=== PATIENT | female | born 1990 | race Caucasian/White ===

== ENCOUNTER 2019-04-27 00:11 | Inpatient (IN) | payer BC ==
[2019-04-27] MEDS ORDERED: Acetaminophen 325 MG Tab PO PRN (01:38)
[2019-04-27] MEDS ORDERED: Lactated Ringers 500 ML IV ONE (01:38)
[2019-04-27] MEDS ORDERED: Tranexamic Acid 1,000 MG in Sodium Chloride 0.9% 100 ML IV PRN (01:38)
[2019-04-27] MEDS ORDERED: Sodium Chloride 0.9% 10 ML Syringe FLUSH PRN (01:38)
[2019-04-27] MEDS ORDERED: Methylergonovine 0.2 MG/1 ML Amp IM PRN (01:38)
[2019-04-27] MEDS ORDERED: Carboprost Tromethamine 250 MCG/1 ML Amp IM PRN (01:38)
[2019-04-27] MEDS ORDERED: Lidocaine 1% 30 ML SDV INJECT PRN (01:38)
[2019-04-27] MEDS ORDERED: Misoprostol 400 MCG (4 X 100 MCG TAB) RECTAL PRN (01:38)
[2019-04-27] MEDS ORDERED: Oxytocin/Normal Saline 30 UNIT/500 ML BAG IV SCH (01:45)
[2019-04-27] MEDS ORDERED: Misoprostol 50 MCG (1/2 of 100 MCG) Tab VAG ONE (02:34)
[2019-04-27] MEDS ORDERED: Penicillin G Potassium 5 MILLUNITS in Sodium Chloride 0.9% 100 ML IV ONE (05:55)
[2019-04-27] MEDS: Lactated Ringers 1,000 ML IV SCH ×3 (06:31→22:16)
--- NOTE | 2019-04-27 10:02 | PCM.PRNOTE ---
- Free Text/Narrative Note: OB History and Physical 04/27/19 Chief Complaint: Induction of labor HPI: 28 y.o. year old at 39w6d (Estimated Date of Delivery: 04/28/19) who presents for planned induction of labor due to history of LGA and breech presentation s/p successful ECV. She reports active movement. ROS: Negative for headache, nausea, vomiting, diarrhea, fever, chills, abdominal pain, hematuria, dysuria, contractions, loss of fluid or bleeding per vagina. Medical Hx: unremarkable Surgical Hx: wisdom teeth extraction Family Hx: negative for defects, bleeding/cloting disorders or heart disease OB Hx: Last was vacuum assisted for 4130g baby with a shoulder dystocia. Labs: OB Panel: Blood Type: B Positive Rubella: Immune HBSAg: nonreactive GBS: Positive Gonorrhea/Chlamydia: Not Detected HIV: Nonreactive RPR: Nonreactive Physical Exam: Vitals: l l 04/26/19 0937 BP: 102/64 Weight: 228 lb 8 oz (104 kg) Gen: No distress CV: Well-perfused, 2+ distal pulses, regular rate and rhythm, no audible murmurs Resp: Non-labored, symmetrical chest expansion, clear to auscultation Abd: gravid, soft, non tender Ext: Moves all extremities, no edema. SVE: 4/75/-3 FHT: 130 CTX: irregular Assessment: 28 y.o. year old at 39w6d who presents for induction of labor for previous LGA infant and breech presentation s/p successful ECV. Cat I Strip. Plan: - Admit to LnD at midnight - Start with cytotec for induction - Limited OB US to ensure vertex presentation - Assess in the morning and determine AROM vs pitocin - Routine cares Nadege Osullivan MD
[2019-04-27] MEDS: Penicillin G Potassium 2.5 MILLUNITS in Sodium Chloride 0.9% 100 ML IV SCH ×4 (10:48→22:53)
[2019-04-27] MEDS ORDERED: Nalbuphine 10 MG/1 ML Vial IM PRN ×2 (14:40→18:58)
[2019-04-27] MEDS: Ondansetron 4 MG/2 ML SDV IV PRN (21:46)
[2019-04-27] MEDS ORDERED: fentaNYL 100 MCG/2 ML SDV ONE (21:53)
[2019-04-27] MEDS ORDERED: EPINEPHrine 1 MG/ML SDV ONE (21:54)
[2019-04-27] MEDS ORDERED: Sodium Bicarbonate 4.2% 2.5 MEQ/5 ML SDV ONE (21:54)
--- NOTE | 2019-04-27 22:17 | PCM.SN ---
- Free Text/Narrative Note: Intrathecal Sitting position, sterile prep and drape. 1% lidocaine w bicarb for skinwheal to L2 L3 interspace. Introducer, 24 ga pencan x 1. Pos CSF, neg heme, neg parasthesia. 0.1 ml pf 1:1000 epi, 20 mcg pf sufenta, 30 mcg pf fentanyl, and 6 mg of 0.75% pf bupivacaine injected after CSF aspiration. Pt to L lateral position. Procedure time 2150 to 2220
[2019-04-28] MEDS: Ondansetron 4 MG/2 ML SDV IV PRN (02:11)
[2019-04-28] MEDS ORDERED: fentaNYL 100 MCG/2 ML SDV ONE (02:12)
[2019-04-28] MEDS: Lactated Ringers 1,000 ML IV SCH (02:14)
[2019-04-28] MEDS ORDERED: EPINEPHrine 1 MG/ML SDV ONE (02:14)
[2019-04-28] MEDS ORDERED: Sodium Bicarbonate 4.2% 2.5 MEQ/5 ML SDV ONE (02:14)
--- NOTE | 2019-04-28 02:35 | PCM.SN ---
- Free Text/Narrative Note: Intrathecal Sitting position, sterile prep and drape. 1% lidocaine w bicarb for skinwheal to L2 L3 interspace. Introducer, 24 ga pencan x 1. Pos CSF, neg heme, neg parasthesia. 0.1 ml pf 1:1000 epi, 20 mcg pf sufenta, 30 mcg pf fentanyl, and 6 mg of 0.75% pf bupivacaine injected after CSF aspiration. Pt to L lateral position. Procedure time 0215 to 0245
[2019-04-28] MEDS: Penicillin G Potassium 2.5 MILLUNITS in Sodium Chloride 0.9% 100 ML IV SCH ×2 (04:06→06:50)
[2019-04-28] MEDS ORDERED: Zolpidem 5 MG Tab PO PRN (04:53)
[2019-04-28] MEDS ORDERED: Misoprostol 400 MCG (4 X 100 MCG TAB) RECTAL PRN (04:53)
[2019-04-28] MEDS ORDERED: Oxytocin 10 Units/1 ML SDV IM PRN (04:53)
[2019-04-28] MEDS ORDERED: Carboprost Tromethamine 250 MCG/1 ML Amp IM PRN (04:53)
[2019-04-28] MEDS ORDERED: Tranexamic Acid 1,000 MG in Sodium Chloride 0.9% 100 ML IV PRN (04:53)
[2019-04-28] MEDS ORDERED: Sodium Chloride 0.9% 10 ML Syringe FLUSH PRN (04:53)
[2019-04-28] MEDS ORDERED: Simethicone 80 MG Tab.Chew PO PRN (04:53)
[2019-04-28] MEDS ORDERED: Benzocaine/Menthol 20%-0.5% Spray 56 GM Canister TOP PRN (04:53)
--- NOTE | 2019-04-28 05:02 | PCM.PRNOTE ---
- Free Text/Narrative Note: Delivery Note Date: 04/28/19 Time: 0433 Provider: Nadege Osullivan MD Ceo & Board Director: Valeri Yoon MS3 Liliana Griffith is a 28 y.o. at 40w0d who presented for induction of labor on 04/27/19. Category 1 tracing upon admission. She was dilated to 4 cm upon admission. She progressed with augmentation with cytotec then pitocin. Artificial rupture of membranes at 1130 with clear fluid while placing a scalp electrode due to a prolonged deceleration. The pitocin was stopped for a while, then restarted and continued to progress. She was complete at 0400. She began pushing at approximately 0355. Delivered a liveborn female infant. Vigorous with spontaneous cry given to mom for skin to skin care. Placenta delivered spontaneously intact with a 3 vessel cord. IV Pitocin was started shortly after delivery of the placenta. Uterus firm. Intact perineum, no lacerations or abrasions. Hemostasis confirmed. Mother and doing well. EBL: 150 mL
[2019-04-28] MEDS: Docusate Sodium 100 MG Cap PO PRN ×2 (10:19→21:39)
[2019-04-28] MEDS: Ibuprofen 800 MG Tab PO PRN ×2 (10:19→18:26)
[2019-04-28] MEDS: Prenatal Multivitamin with Calcium/Folic Acid/Iron Tab PO SCH (10:19)
[2019-04-28] MEDS: Acetaminophen 325 MG Tab PO PRN ×2 (14:18→21:39)
[2019-04-29] MEDS: Prenatal Multivitamin with Calcium/Folic Acid/Iron Tab PO SCH (08:07)
[2019-04-29] MEDS: Docusate Sodium 100 MG Cap PO PRN (08:07)
[2019-04-29] MEDS: Acetaminophen 325 MG Tab PO PRN (08:07)
--- NOTE | 2019-04-29 10:00 | PCM.SN ---
- Free Text/Narrative Note: Post Delivery Day #0 Date: 04/28/19 Subjective: Patient is ambulating without assistance and tolerating oral intake. Her pain has been well-controlled, and her bleeding has been minimal. She has not had nausea, vomiting, blurred vision, diarrhea, shortness of breath, or any other complaints. She is . Objective: Vitals stable Gen: No distress CV: Well-perfused, 2+ distal pulses Resp: Non-labored, symmetrical chest expansion Abd: Fundus is firm and below umbilicus. Ext: Moves All Extremities Well, no edema. Assessment: Status post ( day #0) who is doing well. Plan: - Routine Nursing - vitamin - Encourage and bonding Nadege Osullivan MD
--- NOTE | 2019-04-29 10:01 | PCM.SN ---
- Free Text/Narrative Note: Post Delivery Day #1 Subjective: Patient is ambulating without assistance and tolerating oral intake. Her pain has been well-controlled, and her bleeding has been minimal. She has not had nausea, vomiting, blurred vision, diarrhea, shortness of breath, or any other complaints. She is . Objective: Vitals stable Gen: No distress CV: Well-perfused, 2+ distal pulses Resp: Non-labored, symmetrical chest expansion Abd: Fundus is firm and below umbilicus. Ext: Moves All Extremities Well, no edema. Assessment: Status post ( day #1) who is doing well. Plan: - Routine Nursing - vitamin - Likely discharge later today or tomorrow - Breast pump script signed Nadege Osullivan MD
--- NOTE | 2019-04-29 15:59 | PCM.SN ---
- Free Text/Narrative Note: Discharge Summary Admit date: 04/27/19 Discharge date: 04/29/19 Delivering Physician: Dr. Osullivan Discharging Physician: Dr. Osullivan Admission Diagnoses: at 39w6d EGA Induction of labor History of LGA baby Breech presentation s/p successful ECV Summary of Hospital Course: Liliana is a 28 year old G2 now P2 who presented to labor and delivery on 04/27/19 for induction of labor. She underwent spontaneous vaginal delivery and delivered a viable female weighing 3750 grams with Apgars of 9 and 9 at 1 and 5 minutes respectively. EBL was 150 mL. The patient had an unremarkable course. By day 1, the patient was doing well; ambulating, voiding, and tolerating general diet. Her pain was well controlled with oral pain medications, and was she was discharged to home. Admission hemoglobin was 11.4 gm/dL. Discharge hemoglobin was 10.1 gm/dL. Discharge Exam: Gen: No distress CV: Well-perfused, 2+ distal pulses Resp: Non-Labored, symmetrical chest expansion Abd: Fundus is firm and below umbilicus. Ext: Moves all extremities well, no edema. Discharge (or Final) Diagnoses: 1. Intrauterine at 40w0d on day of delivery 2. Discharge Details: Admission Condition: good Discharged Condition: good Disposition: Home Discharge Medications: OTC ibuprofen Diet: regular diet Activity: no heavy lifting for 2 weeks, pelvic rest for 6 weeks. Follow-up with Dr. Osullivan in 6-8 weeks for visit.
== END 2019-04-29 16:45 | disposition home or self-care (01) | DRG 560 ==
LOC: DL.OB 00:11 → OBSVTOIN 04-28 04:33
PROVIDERS: ADMIT Family Medicine; ATTEND Family Medicine
PROC: 10E0XZZ Delivery of Products of Conception, External Approach (ICD-10-PCS; principal; 2019-04-28)
PROC: 10907ZC Drainage of Amniotic Fluid, Therapeutic from Products of Conception, Via Natural or Artificial Opening (ICD-10-PCS; 2019-04-28)
DX: O99.824 Streptococcus B carrier state complicating childbirth (principal); Z3A.39 39 weeks gestation of pregnancy; Z37.0 Single live birth
CPT/HCPCS: 36415; 59409; 76815; 85027; A9270-GY; J2300; J2405; J2540; J2590; J7050; J7120

== ENCOUNTER 2021-08-03 21:00 | Emergency (ER) | payer BC, OTHER ==
[2021-08-03] MEDS ORDERED: methylPREDNISolone Sodium Succinate 125 MG/2 ML SDV IVPUSH ONE (21:19)
[2021-08-03] MEDS ORDERED: Sodium Chloride 0.9% 1,000 ML IV ONE (21:19)
[2021-08-03] MEDS ORDERED: Sodium Chloride 0.9% 10 ML Syringe FLUSH PRN (21:19)
--- NOTE | 2021-08-03 21:25 | EDM.PDOC ---
ED HPI GENERAL MEDICAL PROBLEM - General Chief Complaint: Allergic Reaction Stated Complaint: ALLERGIC REACTION Time Seen by Provider: 08/03/21 21:15 Source of Information: Reports: Patient History Limitations: Reports: No Limitations - History of Present Illness INITIAL COMMENTS - FREE TEXT/NARRATIVE: Pt was out walking around the park with her family earlier this evening and n oted that she was feeling warm when they got home. She then noted her eyes and lips started swelling. She took a benadryl shortly before 1999, then took another about 30 minutes later after reading the label that she could take 2. She noted that her symptoms are getting worse. She denies having an allergic reaction before. No new foods, soaps, lotions, detergents, insect stings. She noted a fog over part of the park, but it was not where they were walking. She denies any shortness of breath or wheezing. Some lip swelling and tingling, but no throat or tongue swelling. No new medications. 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: , Other (See Below) Other RESTORATIVE [employer] EMBALMER History: external cephalic version Musculoskeletal History: Reports: None Neurological History: Reports: None Psychiatric History: Reports: None Endocrine/Metabolic History: Reports: None Hematologic History: Reports: None Immunologic History: Reports: None Oncologic (Cancer) History: Reports: None Dermatologic History: Reports: None - Infectious Disease History Infectious Disease History: Reports: None - Past Surgical History Head Surgeries/Procedures: Reports: None HEENT Surgical History: Reports: Oral Surgery Social & Family History - Family History Family Medical History: No Pertinent Family History ED ROS ALLERGIC REACTION - Review of Systems Review Of Systems: Comprehensive ROS is negative, except as noted in HPI. ED EXAM GENERAL NO PERIP PULSE - Physical Exam Exam: See Below Exam Limited By: No Limitations General Appearance: Alert, WD/WN, No Apparent Distress Eye Exam: Bilateral Eye: PERRL, Other (swelling bilateral upper and lower eyelids) Ears: Normal External Exam, Hearing Grossly Normal Nose: Normal Inspection, No Blood Throat/Mouth: Normal Inspection, Normal Voice, No Airway Compromise, Other (mild swelling upper and lower lips) Neck: Normal Inspection, Supple, Non-Tender Respiratory/Chest: No Respiratory Distress, Lungs Clear, Normal Breath Sounds, No Accessory Muscle Use. No: Wheezing, Stridor Cardiovascular: Normal Peripheral Pulses, Regular Rate, Rhythm, No Murmur GI/Abdominal: Soft, Non-Tender (Female) Exam: Deferred Rectal (Female) Exam: Deferred Back Exam: Normal Inspection, Full Range of Motion Extremities: Normal Inspection, Normal Range of Motion Neurological: Alert, Oriented, Normal Cognition, No Motor/Sensory Deficits Psychiatric: Normal Affect, Normal Mood Skin Exam: Warm, Dry, Erythema, Other (hives, erythema and generalized swelling noted) Lymphatic: No Adenopathy Course - Vital Signs Last Recorded V/S: Last Vital Signs Temp 98.2 F 08/03/21 22:05 Pulse 68 08/03/21 22:05 Resp 12 08/03/21 22:05 BP 115/96 H 08/03/21 22:05 Pulse Ox 98 08/03/21 22:05 - Orders/Labs/Meds Orders: Active Orders 24 hr Category Date Time Status Peripheral IV Care [RC] . DIRECTED Care 08/03/21 21:20 Ordered Sodium Chloride 0.9% [Saline Flush] Med 08/03/21 21:19 Ordered 10 ml FLUSH ASDIRECTED PRN Peripheral IV Insertion Adult [OM.PC] Stat Oth 08/03/21 21:19 Ordered Medication Orders Sodium Chloride (Sodium Chloride 0.9% 10 Ml Syringe) 10 ml FLUSH ASDIRECTED PRN PRN Reason: Keep Vein Open Last Admin: 08/03/21 21:34 Dose: 10 ml Documented by: Labs: Laboratory Tests 08/03/21 08/03/21 Range/Units 21:25 21:25 WBC 8.4 (5.0-10.0) 10^3/uL RBC 4.61 (4.2-5.4) 10^6/uL Hgb 13.3 D (12.0-16.0) g/dL Hct 40.6 (37.0-47.0) % MCV 88.1 D (80-100) fL MCH 28.9 (27.0-34.0) pg MCHC 32.8 L (33.0-35.0) g/dL Plt Count 310 D (150-450) 10^3/uL Neut % (Auto) 59.2 (42.2-75.2) % Lymph % (Auto) 33.6 (20.5-50.1) % Traill % (Auto) 5.4 (2-8) % Eos % (Auto) 1.3 (1.0-3.0) % Baso % (Auto) 0.5 (0.0-1.0) % Sodium 140 (136-145) mmol/L Potassium 3.8 (3.5-5.1) mmol/L Chloride 105 (98-107) mmol/L Carbon Dioxide 25 (21-32) mmol/L Anion Gap 13.8 H (7-13) mEq/L BUN 12 (7-18) mg/dL Creatinine 0.81 (0.55-1.02) mg/dL Est Cr Clr Drug Dosing 92.21 mL/min Estimated GFR (MDRD) > 60 BUN/Creatinine Ratio 14.8 (No establ ref range) Glucose 113 H (70-99) mg/dL Calcium 8.8 (8.5-10.1) mg/dL Total Bilirubin 0.3 (0.2-1.0) mg/dL AST 15 (15-37) U/L ALT 26 (14-59) U/L Alkaline Phosphatase 73 (46-116) U/L Total Protein 7.3 (6.4-8.2) g/dL Albumin 3.9 (3.4-5.0) g/dL Globulin 3.4 Albumin/Globulin Ratio 1.1 Meds: Medications Generic Name Dose Route Start Last Admin Trade Name Freq PRN Reason Stop Dose Admin Sodium Chloride 10 ml 08/03/21 21:19 08/03/21 21:34 Sodium Chloride 0.9% 10 Ml Syringe FLUSH 10 ml ASDIRECTED PRN Administration Keep Vein Open Discontinued Medications Generic Name Dose Route Start Last Admin Trade Name Freq PRN Reason Stop Dose Admin Sodium Chloride 1,000 mls @ 999 mls/hr 08/03/21 21:19 08/03/21 21:34 Normal Saline IV 08/03/21 22:19 999 mls/hr .BOLUS ONE Administration Methylprednisolone Sodium Succinate 125 mg 08/03/21 21:19 08/03/21 21:30 Methylprednisolone Sodium Succinate 125 Mg/2 Ml Sdv IVPUSH 08/03/21 21:20 125 mg ONETIME ONE Administration - Re-Assessments/Exams Free Text/Narrative Re-Assessment/Exam: Pt notes she is feeling better and is ready to go home. Will send home with prednisone Rx for 5 days that she can fill tomorrow to make sure the reaction doesn't rebound. Reviewed reasons to call or return to the ER. Pt verbalized understanding. 08/03/21 22:33 Departure - Departure Time of Disposition: 22:34 Disposition: Home, Self-Care 01 Condition: Fair Clinical Impression: Allergic reaction Qualifiers: Encounter type: initial encounter Qualified Code(s): T78.40XA - Allergy, unspecified, initial encounter - Discharge Information *PRESCRIPTION DRUG MONITORING PROGRAM REVIEWED*: Not Applicable *COPY OF PRESCRIPTION DRUG MONITORING REPORT IN PATIENT KIERA: Not Applicable Instructions: Anaphylactic Reaction, Adult Forms: ED Department Discharge Additional Instructions: If your symptoms worsen, call/return to the ER Prednisone 40 mg daily for 5 additional days Follow up with your primary care provider in 3-5 days Sepsis Event Note (ED) - Focused Exam Vital Signs: Vital Signs Temp Pulse Resp BP Pulse Ox 08/03/21 22:05 98.2 F 68 12 115/96 H 98 08/03/21 21:21 98.5 F 78 22 H 123/83 98 - My Orders Last 24 Hours: My Active Orders 08/03/21 21:19 Sodium Chloride 0.9% [Saline Flush] 10 ml FLUSH ASDIRECTED PRN Peripheral IV Insertion Adult [OM.PC] Stat 08/03/21 21:20 Peripheral IV Care [RC] . DIRECTED - Assessment/Plan Last 24 Hours: My Active Orders 08/03/21 21:19 Sodium Chloride 0.9% [Saline Flush] 10 ml FLUSH ASDIRECTED PRN Peripheral IV Insertion Adult [OM.PC] Stat 08/03/21 21:20 Peripheral IV Care [RC] . DIRECTED
[2021-08-03 21:49] LABS: ANION GAP 13.8 mEq/L (7-13); CHLORIDE,CL 105 mmol/L (98-107); SODIUM,NA 140 mmol/L (136-145)
== END 2021-08-03 22:45 | disposition home or self-care (01) ==
LOC: DL.ED 21:00
DX: L50.9 Urticaria, unspecified (principal); T45.0X5A Adverse effect of antiallergic and antiemetic drugs, initial encounter
CPT/HCPCS: 36415; 80053; 85025; 96374; 99283-25; J2930; J7030

== ENCOUNTER 2022-08-15 17:27 | Emergency (ER) | payer BC | END 2022-08-15 18:59 | disposition home or self-care (01) | LOC: DL.ED 17:27 | DX: L50.0 Allergic urticaria (principal) | CPT/HCPCS: 93005; 99284 ==